=== PATIENT | female | born 1960 | race Caucasian/White ===

== ENCOUNTER 2017-09-02 17:30 | Emergency (ER) | payer SELFPAY ==
--- NOTE | 2017-09-02 17:44 | ED Physician Documentation ---
Allergy Symptoms - HISTORIAN Historian: patient - HPI Chief Complaint: Allergic Reaction Additional Information: onset 1130 today itching later urticaria now upper lip and some poss dysphagia and dyspnes-pt thinks anxiety Duration: continues in ED, worse Associated Symptoms: skin rash, facial, itching, trunk, extremities Swelling: lip(s). denies: tongue, throat Shortness of Breath: mild Identified Cause: no Context: Food Exposure: none Context: Medication Exposure: none (on buspirone for several yrs no prev problem ) Further Comments: yes (pt anxious but no apparent distress) - ROS EYES/ENT: none CVS/RESP: none. denies: shortness of breath, cough GI/: none. denies: abdominal pain, problems urinating, vomiting, nausea CONST: none MS/SKIN/LYMPH: none NEURO/PSYCH: anxiety - PAST HX Prior Allergic Reaction: none Medical History: none Allergies/Adverse Reactions: Allergies Allergy/AdvReac Type Severity Reaction Status Date / Time Penicillins Allergy Intermediate Hives Verified 09/02/17 17:43 hydromorphone HCl Allergy Hives Verified 09/02/17 17:43 [From Dilaudid] morphine Allergy Hives Verified 09/02/17 17:43 Home Medications: Ambulatory Orders Medication Instructions Recorded Buspirone HCl [Buspar] 30 mg PO BID 09/02/17 Prednisone 10 mg PO QID #20 tablet 09/02/17 - SOCIAL HX Smoking History: other (4cigs per day--prev 3 ppd) Alcohol Use: none Drug Use: none - FAMILY HX Family History: No - VITAL SIGNS Vital Signs: Vital Signs Temp Pulse Resp BP Pulse Ox 122/79 04/19/16 20:31 - REVIEWED ASSESSMENTS Nursing Assessment Reviewed: Yes Vitals Reviewed: Yes ED Results Lab/Radiology - Orders Orders: ED Orders Category Date Time Status Loratadine [Claritin] Med 09/02/17 17:35 Discontinued 20 mg PO .STK-MED ONE Pharmacy [facility] 09/02/17 17:39 Discontinued 1 each [facility] .STK-MED ONE methylPREDNISolone ACETATE [Depo-Medrol] Med 09/02/17 17:35 Discontinued 80 mg IM .STK-MED ONE Allergy Symptons Exam - EXAM General Appearance: mild distress HEENT: ENT nml inspection Skin: skin rash, erythema, urticaria Extremities: non-tender, nml ROM, no edema Neck: nml inspection Respiratory: no resp. distress, breath sounds nml CVS: reg rate & rhythm, heart sounds normal Abdomen: non-tender, no distention Neuro: oriented X3, motor nml, sensation nml, mood/affect nml Discharge Clincal Impression: allergic reaction udo Prescriptions: Prednisone 10 mg PO QID #20 tablet Referrals: Primary Doctor,No [Primary Care Provider] - 2 Days Comments: home meds get pred at pharm in am Condition: Good Disposition: 01 HOME, SELF-CARE Decision to Admit: NO Decision Time: 19:24
[2017-09-02] MEDS: LORATADINE 10 MG TABLET PO ONE ×2 (18:09→18:10)
[2017-09-02] MEDS: methylPREDNISolone ACETATE 80 MG/ML VIAL IM ONE ×2 (18:10)
[2017-09-02] MEDS: EPINEPHrine/PF 1 MG/1 ML 1:1000 IM ONE (18:39)
[2017-09-02] MEDS: FAMOTIDINE 20 MG TABLET PO ONE (18:39)
[2017-09-02] MEDS: PHARMACY KEY 1 EACH EACH MC ONE (18:39)
[2017-09-02] MEDS: DEXAMETHASONE SOD PHOS 4 MG/ML VIAL IM ONE (19:32)
[2017-09-02 19:38] VITALS: BP 142/65
== END 2017-09-02 19:30 | disposition home or self-care (01) ==
LOC: ED 17:30
DX: R21 Rash and other nonspecific skin eruption (principal)
CPT/HCPCS: J0171; J1040; J1100; 96372; 99282

== ENCOUNTER 2018-04-02 09:03 | Emergency (ER) | payer SELFPAY ==
--- NOTE | 2018-04-02 09:40 | ED Physician Documentation ---
Chest Pain - HISTORIAN Historian: patient - HPI Stated Complaint: chest pain Chief Complaint: Chest Pain Additional Information: Upper bilateral CP that radiates to mid thoracic area began this am while she was sitting. Feels like a vise on her chest. She took a 325 mg asa and laid down. The pain improved. She had the same pain last week that was less severe and only lasted for a short time. She had rapid heart rate, but denies diaphoresis or SOB. No other modifying factors or associated signs. HX fibromyalgia, plaque psoriasis. F of CT at 53. M with CVA at 42 and in [place] for 20 years. Last known Well Date: 04/01/18 Last Known Well Time: 07:00 - ROS CONST: none - PAST HX CT risk factors: other (FH, smoker) Allergies/Adverse Reactions: Allergies Allergy/AdvReac Type Severity Reaction Status Date / Time Penicillins Allergy Intermediate Hives Verified 04/02/18 09:34 hydromorphone HCl Allergy Hives Verified 04/02/18 09:34 [From Dilaudid] morphine Allergy Hives Verified 04/02/18 09:34 Home Medications: Ambulatory Orders Medication Instructions Recorded Buspirone HCl [Buspar] 30 mg PO BID 09/02/17 Alprazolam [Xanax] 04/02/18 - SOCIAL HX Smoking History: cigarettes - FAMILY HX Family HX: CAD under 55 - VITAL SIGNS Vital Signs: Vital Signs Temp Pulse Resp BP Pulse Ox 98.0 F 100 H 18 198/81 97 04/02/18 09:09 04/02/18 09:09 04/02/18 09:09 04/02/18 09:09 04/02/18 09:09 - REVIEWED ASSESSMENTS Nursing Assessment Reviewed: Yes Vitals Reviewed: Yes Progress - Progress Progress: EKG: sinus tachycardia, 100 BPM, non STEMI Report Submission Date: Apr 02, 2018 9:58:19 AM CDT Patient Study Name: CHELSEA PERSON Date: Apr 02, 2018 9:26:03 AM CDT Modality Type: DX Gender: F Description: CHEST : 58 Institution: [facility] Physician: PETEY RUSSELL - YEMI Examination: Portable chest History: Evaluate lungs CHEST PAIN X2 DAYS (Hx) Comparison exam: None provided. Findings: Single view of the chest demonstrates a normal cardiac and mediastinal silhouette. Lung geller without focal infiltrate. No blunting of the costophrenic margins. Osseous structures are appropriate for age. Impression: No acute pulmonary process. Electronically signed on Apr 02, 2018 9:58:19 AM CDT by: Zana Wyman reproducible. All labs, including serial Trop I's, reassuring, as are EKG and CXR. So cardiology not involved. ED Results Lab/Radiology - Orders Orders: ED Orders Category Date Time Status Continuous EKG monitoring Q1H Care 04/02/18 09:[address] IV Lock 1T Care 04/02/18 09:17 Active CHEST 1VIEW [RAD] Stat Exams 04/02/18 Ordered CBC REF Routine Lab 04/02/18 09:15 Received CMP Routine Lab 04/02/18 09:15 Received TROPONIN I (cTnI) Stat Lab 04/02/18 09:15 Received URINALYSIS Routine Lab 04/02/18 Ordered EKG WITH COMPARISON Stat Ther 04/02/18 Ordered Chest Pain Physical Exam - EXAM General Appearance: alert, mild distress EENT: eye inspection normal, ENT inspection normal (edentulous), pharynx normal (Mallampati 2) Neck: nml inspection. No: lymphadenopathy Respiratory: no resp. distress, nml breath sounds, other (pain reproducible with palpation Left ant axillary area/pecs.) CVS: reg. rate & rhythm, no murmur Abdomen: soft, normal bowel sounds Skin: warm/dry, normal color Extremities: normal range of motion (gait and stance), no evidence of injury, no edema Neuro: CN's nml as tested, motor nml, sensation nml, cognition normal Discharge Clincal Impression: Chest wall pain Referrals: Primary Doctor,No [Primary Care Provider] - 2 Days Additional Instructions: Ice or gentle heat to the sore muscles for 30 minutes of each hour you are awake. Follow up with your provider as needed. Return to the ER if your condition worsens. Condition: Good Disposition: 01 HOME, SELF-CARE Decision to Admit: NO Decision Time: 13:00
[2018-04-02 09:56] LABS: eGFR (Non-African) > 60
--- NOTE | 2018-04-02 10:09 | Diagnostic Imaging Report ---
PETEY RUSSELL [facility] [address] [facility] [address] [place] [address]. [id number] Report Submission Date: Apr 02, 2018 9:58:19 AM CDT Patient Study Name: CHELSEA PERSON Date: Apr 02, 2018 9:26:03 AM CDT Modality Type: DX Gender: F Description: CHEST : 58 Institution: [facility] Physician: PETEY RUSSELL Examination: Portable chest History: Evaluate lungs CHEST PAIN X2 DAYS (Hx) Comparison exam: None provided. Findings: Single view of the chest demonstrates a normal cardiac and mediastinal silhouette. Lung geller without focal infiltrate. No blunting of the costophrenic margins. Osseous structures are appropriate for age. Impression: No acute pulmonary process. Electronically signed on Apr 02, 2018 9:58:19 AM CDT by: Zana KUMAR
[2018-04-02 10:54] LABS: APPEARANCE,URINE CLEAR (CLEAR); COLOR,URINE YELLOW (YELLOW); OCCULT BLOOD,URINE NEGATIVE (NEGATIVE); UROBILINOGEN URINE 0.2 Eu (0.2-1.0)
[2018-04-02 13:34] VITALS: BP 176/97
[2018-04-02 13:51] LABS: BASO % 0.6 % (0.0-1.5); EOS % 1.2 % (0.0-6.8); LYMPH ABS # 1.68 thou/uL (0.60-4.00); MCH. 31.1 pg (28.0-34.0); MCV 91.1 fL (80.0-100.0); MONOCYTE % 5.4 % (0.0-11.0); MONOCYTE ABS # 0.32 thou/uL (0.00-0.90); PLATELET COUNT 333 thou/uL (130-400)
== END 2018-04-02 13:32 | disposition home or self-care (01) ==
LOC: ED 09:03
DX: R07.89 Other chest pain (principal)
CPT/HCPCS: 71045; 80053; 81002; 84484; 85025; 99283; S1016